=== PATIENT | male | born 1990 | race Caucasian/White ===

== ENCOUNTER → 2020-10-23 | Outpatient (CLI) | payer BC ==
--- NOTE | 2020-10-23 17:52 | REP ---
INDICATION: N62 HYPERTROPHY OF BREAST; HYPERTROPHY OF BREAST. COMPARISON: No comparison breast imaging. TECHNIQUE: Bilateral CC and MLO) view(s) were taken. 3D tomography was acquired. Targeted bilateral subareolar sonography and left axillary sonography was performed. FINDINGS: Routine mammographic view show fatty is tissue in both breasts. There is no significant subareolar fibroglandular tissue to suggest significant gynecomastia of by mammographic criteria. No mass or microcalcification is observed. There is a slightly prominent lymph node in the left axilla. Normal lymph node is noted in the right axilla. This is ipsilateral to recent COVID vaccination arm sites. Targeted sonography findings. Bilateral subareolar sonography is unremarkable. No fibroglandular tissue is seen. Homogeneous subcutaneous fat is observed. In the left axilla there are 2 identifiable lymph nodes measured as follows: 2.1 x 1.5 x 0.7 and 1.6 x 2.2 x 0.8 cm. These lymph nodes have preserved fatty hilar architecture. There are cortical margins are slightly hypertrophied measuring up to 3-1/2 mm. IMPRESSION: BI-RADS category 3 probably benign findings. The mammography is normal. There are 2 slightly hypertrophic lymph nodes in the left axilla. This is ipsilateral to recent COVID vaccine and may be reactive nodes. Suggest follow-up sonography in 3 months time. This mammogram was interpreted with the aid of an FDA-approved computer-aided detection system. The patient states he had a clinical breast exam in September of 2020. The patient letter being requested is male letter M 2. RECOMMENDATION: Follow-up left axillary sonography in 3 months time. <Electronically signed by Jovanni Wheeler > 10/23/20 [id number]
== END ==
LOC: M WHC 15:20
PROVIDERS: ATTEND Plastic Surgery Surgery of the Hand
DX: N62 Hypertrophy of breast (principal); R59.0 Localized enlarged lymph nodes
CPT/HCPCS: 76642; 77066; G0279

== ENCOUNTER → 2020-12-04 | Outpatient (CLI) | payer BC ==
[2020-12-04 10:35] LABS: HEMATOCRIT 44.5 % (42.0-52.0); HEMOGLOBIN 14.8 g/dl (13.5-17.5); MEAN CORPUSCULAR HEMOGLOBIN 27.7 pg (27.0-33.0); MEAN CORPUSCULAR HGB CONC 33.3 g/dl (32.0-36.5); MEAN CORPUSCULAR VOLUME 83.3 fl (80.0-96.0); PLATELET COUNT, AUTOMATED 279 10^3/uL (150-450); RED BLOOD COUNT 5.34 10^6/uL (4.30-6.10); WHITE BLOOD COUNT 6.2 10^3/uL (4.0-10.0)
[2020-12-04 11:10] LABS: ALBUMIN 4.4 GM/DL (3.2-5.2); ALT/SGPT 57 U/L (12-78); BILIRUBIN,DIRECT 0.1 MG/DL (0.0-0.2); BILIRUBIN,TOTAL 0.6 MG/DL (0.2-1.0); BLOOD UREA NITROGEN 17 MG/DL (7-18); CALCIUM LEVEL 9.3 MG/DL (8.5-10.1); CARBON DIOXIDE LEVEL 28 MEQ/L (21-32); CHLORIDE LEVEL 107 MEQ/L (98-107); CREATININE FOR GFR 0.88 MG/DL (0.70-1.30); FOLLICLE STIMULATING HORMONE 2.8 mIU/mL (1.4-18.1); FREE T4 0.81 NG/DL (0.76-1.46); GLOMERULAR FILTRATION RATE > 60.0 (>60); GLUCOSE, FASTING 102 MG/DL (70-100); POTASSIUM SERUM 4.3 MEQ/L (3.5-5.1); PROGESTERONE 0.68 NG/ML (0.28-1.22); PROLACTIN 4.4 NG/ML (2.1-17.7); SODIUM LEVEL 140 MEQ/L (136-145); TOTAL PROTEIN 7.5 GM/DL (6.4-8.2)
[2020-12-05 20:08] LABS: HCG SERUM TUMOR MARKER QUANT < 1 mIU/mL (0-3); TESTOSTERONE FREE (DIRECT) 11.4 pg/mL (8.7-25.1)
== END ==
LOC: M LAB 09:56
PROVIDERS: ATTEND Plastic Surgery Surgery of the Hand
DX: N62 Hypertrophy of breast (principal)

== ENCOUNTER → 2021-01-30 | Outpatient (CLI) | payer BC ==
--- NOTE | 2021-01-30 15:57 | REP ---
INDICATION: PREVIOUSLY NOTED L ENLARGED LYMPHNODE L AXILLA. COMPARISON: 10/23/2020. TECHNIQUE: Real-time sonographic evaluation of left axilla performed. FINDINGS: Multiple morphologically normal appearing lymph nodes are identified in the left axilla. These demonstrate an echogenic fatty hilum. The 2 largest measure 2.0 x 0.7 x 1.5 cm and 0.9 x 0.8 x 1.8 cm. Maximal cortical thickness is 3 mm. IMPRESSION: ACR 2 benign findings. No sonographic evidence of pathologically enlarged lymph nodes. Compared to the prior exam 10/23/2020, 1 of the previously identified lymph nodes is unchanged in size but decreased in cortical thickness, and the other appears to have decreased in size. <Electronically signed by Todd Jacob > 01/30/21 [id number]
== END ==
LOC: M WHC 13:31
PROVIDERS: ATTEND Plastic Surgery Surgery of the Hand
DX: N62 Hypertrophy of breast (principal)

== ENCOUNTER → 2021-04-13 | Outpatient (CLI) | payer BC | LOC: M LABSMTC 11:09 | PROVIDERS: ATTEND Anesthesiology | DX: Z01.812 Encounter for preprocedural laboratory examination (principal); Z20.822 Contact with and (suspected) exposure to COVID-19 ==

== ENCOUNTER 2021-04-18 11:27 | Observation (INO) | payer BC ==
[~2021-04-18] VITALS: Ht 162.6 cm; Wt 76.6 kg
[~2021-04-18 11:27] MED LIST: HEPARIN SOD (PORCINE) 5000UNITS/ML 1ML VIAL/SYRINGE SQ ONE; ceFAZolin SOD 1 GM in D5W MINI-BAG PLUS 50 ML IV ONE
[2021-04-18 12:05] LABS: HEMATOCRIT 43.7 % (42.0-52.0); HEMOGLOBIN 14.7 g/dl (13.5-17.5); MEAN CORPUSCULAR HEMOGLOBIN 28.1 pg (27.0-33.0); MEAN CORPUSCULAR HGB CONC 33.6 g/dl (32.0-36.5); MEAN CORPUSCULAR VOLUME 83.4 fl (80.0-96.0); PLATELET COUNT, AUTOMATED 295 10^3/uL (150-450); RED BLOOD COUNT 5.24 10^6/uL (4.30-6.10); WHITE BLOOD COUNT 6.8 10^3/uL (4.0-10.0)
[2021-04-18] MEDS ORDERED: dexameTHASONE 4 MG/ML 1ML VIAL (J1100 PER 1MG) As Ordered ONE (12:49)
[2021-04-18] MEDS ORDERED: ROCURONIUM BROMIDE 50 MG/5 ML VIAL As Ordered ONE ×3 (12:49→16:52)
[2021-04-18] MEDS ORDERED: propofoL 200 MG/20 ML VIAL As Ordered ONE (12:49)
[2021-04-18] MEDS ORDERED: ONDANSETRON 4MG/2ML VIAL As Ordered ONE (12:49)
[2021-04-18] MEDS ORDERED: LIDOCAINE 2% 100MG/5ML SDV (FOR ANES.) As Ordered ONE (12:49)
[2021-04-18] MEDS ORDERED: fentaNYL 250 MCG/5 ML INJECTION (J3010) As Ordered ONE (12:50)
[2021-04-18] MEDS ORDERED: MIDAZOLAM INJ 2MG/2ML VIAL (J2250 PER 1MG) As Ordered ONE (12:50)
[2021-04-18] MEDS ORDERED: LIDOCAINE 1% MDV 20ML VIAL As Ordered ONE (13:36)
[2021-04-18] MEDS ORDERED: EPINEPHrine INJ 1 MG/ML 1ML AMP As Ordered ONE (13:37)
[2021-04-18] MEDS ORDERED: GENTAMICIN SULF 80MG/2ML VIAL As Ordered ONE (13:37)
[2021-04-18] MEDS ORDERED: HYDROmorphone HCL 2 MG/ML 1ML VIAL As Ordered ONE (14:52)
[2021-04-18] MEDS ORDERED: ACETAMINOPHEN 1000MG 100ML IV BTL (OFIRMEV) (J0131 PER 10MG) As Ordered ONE (14:52)
[2021-04-18] MEDS ORDERED: SUGAMMADEX SODIUM 500 MG/5 ML VIAL (BRIDION) As Ordered ONE (14:52)
[2021-04-18] MEDS ORDERED: ePHEDrine SULFATE 25 MG/5 ML(5MG/ML) SYRINGE As Ordered ONE (14:58)
[2021-04-18] MEDS ORDERED: oxyCODONE 5MG TAB PO PRN (18:30)
[2021-04-18] MEDS ORDERED: LR 1,000 ML IV SCH (18:30)
[2021-04-18] MEDS ORDERED: fentaNYL 100 MCG/2 ML INJECTION (J3010) IV PRN (18:30)
[2021-04-18] MEDS ORDERED: ONDANSETRON 4MG/2ML VIAL IV PRN ×2 (18:30→18:40)
--- NOTE | 2021-04-18 18:33 | POST-OPPD ---
Postoperative Procedure Note Date Of Procedure: Apr 18, 2021 PREOPERATIVE DIAGNOSIS: Bilateral breast hypertrophy. POSTOPERATIVE DIAGNOSIS: same PROCEDURE: Bilateral subcutaneous mastectomies for gynecomastia. SURGEON: Dr Valle METAL TREATER: none ANESTHESIA: general ESTIMATED BLOOD LOSS: 150 cc FINDINGS: bilateral breast tissue SPECIMENS: Left breast 81 gm, Right breast 79 gm, Liposuction fluid 200 cc each side. COMPLICATIONS: none REPLACED: none DRAINS: 15 Fr round x 2 POSTOPERATIVE CONDITION: stable TAMY VALLE DO Apr 18, 2021 18:33
--- NOTE | 2021-04-18 18:35 | ROOPDOC ---
[facility] Report Of Operation Report of Operation DATE OF PROCEDURE: 04/18/21 PREOPERATIVE DIAGNOSIS: Bilateral breast hypertrophy. POSTOPERATIVE DIAGNOSIS: same PROCEDURE: Bilateral subcutaneous mastectomies for gynecomastia. SURGEON: Dr Valle SUPERVISOR BRAIDING: none ANESTHESIA: general ESTIMATED BLOOD LOSS: 150 cc FINDINGS: bilateral breast tissue SPECIMENS: Left breast 81 gm, Right breast 79 gm, Liposuction fluid 200 cc each side. COMPLICATIONS: none REPLACED: none DRAINS: 15 Fr round x 2 POSTOPERATIVE CONDITION: stable DESCRIPTION OF PROCEDURE: This is a 30-year-old male who presents with bilateral distribution gynecomastia pattern. Patient is scheduled for bilateral subcutaneous mastectomies for gynecomastia. Risks, benefits, and alternatives of the procedure discussed with patient in details and he is ready to proceed.On the day of surgery, he was marked in the upright position and then he was brought into the operating room, placed in supine position. Preoperative antibiotics given, sequential stockings placed on the lower calves. General anesthesia was induced. He was prepped and draped in the usual sterile fashion. We started our procedure with making a stab incision on the right lateral chest. Tumescent solution was infiltrated in the left breast, 200 mL total. Vaser Liposuction was used for melting down the fat and breaking out the scar tissue on the right side, and we used 3.7 three-ring cannula 5 rings with 80% of the power for 2 minutes. After that part of the procedure was completed, we used regular suction-assisted lipectomy to remove the rest of the liposuction, total 200 cc. Then, we made an supra-areolar incision, dissection of glandular tissue was started out using electrocautery under direct vision with a lighted retractor. The breast tissue was completely excised using electrocautery. The pectoralis muscle was in good condition. The skin was in good condition. Hemostasis was obtained using electrocautery. Wound is irrigated with gentamicin irrigation solution. Then, 15 Fr round drain was placed through the initial stab incision that was done for the liposuction and placed in the cavity and then the wound was closed with interrupted #4-0 Monocryl sutures and #5-0 plain gut sutures. We started our procedure with making a stab incision on the left lateral chest. Tumescent solution was infiltrated in the left breast, 200 mL total. Vaser Liposuction was used for melting down the fat and breaking out the scar tissue on the right side, and we used 3.7 three-ring cannula 5 rings with 80% of the power for 2 minutes. After that part of the procedure was completed, we used regular suction-assisted lipectomy to remove the rest of the liposuction, total 200 cc. Then, we made an supra-areolar incision, dissection of glandular tissue was started out using electrocautery under direct vision with a lighted retractor. The breast tissue was completely excised using electrocautery. The pectoralis muscle was in good condition. The skin was in good condition. Hemostasis was obtained using electrocautery. Wound is irrigated with gentamicin irrigation solution. Then, 15 Fr round drain was placed through the initial stab incision that was done for the liposuction and placed in the cavity and then the wound was closed with interrupted #4-0 Monocryl sutures and #5-0 plain gut sutures. Good symmetry was achieved. Steri-Strips was applied to the both nipples. A bulky dressing and a compression dressing was placed. The patient was extubated in the operating room without any difficulty, transferred to the recovery room in stable condition. TAMY VALLE DO Apr 18, 2021 18:35
[2021-04-18] MEDS ORDERED: MORPHINE 4 MG/ML 1ML VIAL/SYRINGE (J2270) IV PRN (18:40)
[2021-04-18] MEDS ORDERED: PERCOCET 5MG/325MG TAB PO PRN (18:40)
[2021-04-18] MEDS ORDERED: ACETAMINOPHEN TAB 650MG DOSE (2X325MG) PO PRN (18:40)
[2021-04-18 19:54] VITALS: BP 129/86
[2021-04-18 20:24] VITALS: BP 127/85
[2021-04-18] MEDS: LR 1,000 ML IV SCH (20:43)
[2021-04-18 21:24] VITALS: BP 126/84
[2021-04-18 22:24] VITALS: BP 120/78
[2021-04-18 23:24] VITALS: BP 123/88
[2021-04-19 00:24] VITALS: BP 126/86
[2021-04-19 04:24] VITALS: BP 124/78
[2021-04-19] MEDS: LR 1,000 ML IV SCH (08:00)
[2021-04-19] MEDS ORDERED: INFLUENZA QUADRIVALENT PF VACCINE 0.5ML SYRINGE IM ONE (09:00)
--- NOTE | 2021-04-19 10:50 | IPNPDOC ---
Subjective General Date Seen: Apr 19, 2021 Subject Chief Complaint/History The patient is a 30-year-old male admitted with a reason for visit of Bilateral Breast Hypertrophy. Status post bilateral subcutaneous mastectomies for gynecomastia postop day 1. Patient is doing well. Ambulating, tolerating diet. Current Medications Current Medications Current Medications Medications (Trade) Dose Ordered Sig/Ksenia Route PRN Reason Start Time Stop Time Status Last Admin Dose Admin Acetaminophen (Tylenol Tab) 650 mg Q6H PRN PO MILD PAIN (PS 1-4) 04/18/21 18:40 Fentanyl Citrate (Sublimaze) 25 mcg Q5MP PRN IV PAIN LEVEL 8-10 04/18/21 18:30 04/18/21 20:30 DC Lactated Ringer's 1,000 ml @ 75 mls/hr [id number] IV 04/18/21 18:40 04/18/21 20:43 Lactated Ringer's 1,000 ml @ 80 mls/hr [id number] IV 04/18/21 18:30 04/18/21 20:30 DC 04/18/21 19:01 Morphine Sulfate (Morphine Sulfate Inj) 4 mg Q4HP PRN IV SEVERE PAIN (PS 8-10) 04/18/21 18:40 Ondansetron HCl (ZOFRAN INJection) 4 mg Q4H PRN IV NAUSEA OR VOMITING 04/18/21 18:40 Ondansetron HCl (ZOFRAN INJection) 4 mg Q4HP PRN IV NAUSEA OR VOMITING 04/18/21 18:30 04/18/21 20:30 DC Oxycodone HCl (Roxicodone, Oxyir) 5 mg ASDIRECTED PRN PO PAIN LEVEL 1-4 04/18/21 18:30 04/18/21 20:30 DC Oxycodone/ Acetaminophen (Percocet 5mg/ 325mg Tablet) 2 tab Q4HP PRN PO PAIN LEVEL 4-7 04/18/21 18:40 Allergies Coded Allergies: No Known Allergies (Unverified , 04/10/21) Objective Physical Examination Examination GENERAL APPEARANCE:Patient seen, laying in bed, awake, alert, and oriented. Comfortable, in no acute distress. SKIN: Warm and moist. BREAST: Right and left soft, non-tender incisions intact. RENETTA drains: 40/10 cc/24 hr. NAC: Viable, warm, symmetrical, mild post-op ecchymosis, no expanding he matoma. HEENT: Normocephalic, atraumatic. [place] palpebral conjunctiva, anicteric sclerae. Lips and mucosa appear moist. NECK: Supple, no thyromegaly. No obvious jugular venous distention. LUNGS: Clear to auscultation bilaterally. No wheezing appreciated. HEART: No chest wall abnormalities. Regular rate and rhythm with no murmurs appreciated. Vital Signs Vital Signs Date Time Temp Pulse Resp B/P (MAP) Pulse Ox O2 Delivery O2 Flow Rate FiO2 04/19/21 04:24 98.0 72 16 124/78 (93) 98 Room Air 04/18/21 19:45 2.0 I&Os I&O- Last 24 Hours up to 6 AM 04/19/21 05:59 Intake Total 2140 ml Output Total 1200 ml Balance 940 ml Laboratory Data Labs 24H Laboratory Tests 2 04/18/21 11:45: Nucleated Red Blood Cells % (auto) 0.0 CBC/BMP Laboratory Tests 04/18/21 11:45 Impression Bilateral gynecomastia. S/p bilateral subcutaneous mastectomies POD 1. Stable for discharge dressings changed today. f/up plastic surgery office after discharge. Plan / VTE VTE Prophylaxis Ordered?: Yes TAMY VALLE DO Apr 19, 2021 10:50
[2021-04-19] MEDS ORDERED: PERCOCET PO (10:53)
== END 2021-04-19 12:40 | disposition home or self-care (01) ==
LOC: M SDC 11:27 → M ED INP 11:28 → M MS5PR 19:54
PROVIDERS: ADMIT Plastic Surgery Surgery of the Hand; ATTEND Plastic Surgery Surgery of the Hand
DX: N62 Hypertrophy of breast (principal)
CPT/HCPCS: 19300; 36415; 85027; 88300; 88305; J0131; J0171; J0690; J1100; J1170; J1580; J1644; J2250; J2405; J3010